=== PATIENT | male | born 1990 | race African-American/Black ===

== ENCOUNTER 2017-03-17 11:56 | Outpatient (CLI) | payer OTHER | END 2017-03-17 11:57 | disposition home or self-care (01) | DX: M25.561 Pain in right knee (principal); X58.XXXA Exposure to other specified factors, initial encounter; Y93.67 Activity, basketball ==

== ENCOUNTER 2018-12-13 18:18 | Emergency (ER) | payer SELFPAY ==
--- NOTE | 2018-12-13 20:42 | XRAY Report ---
Reason: injury shoulder playing basketball Procedure Date: 12/13/2018 Accession Number: [id number] / [id number] Procedure: XR - Shoulder 3 View LT CPT Code: FULL RESULT: EXAM: LEFT SHOULDER RADIOGRAPHY EXAM DATE: 12/13/2018 08:09 PM. CLINICAL HISTORY: Injury shoulder playing basketball. COMPARISON: None. TECHNIQUE: 3 views. FINDINGS: Bones: No fracture or focal bony lesion. Joints: No evidence of dislocation. Soft Tissues: No unexpected soft tissue findings. IMPRESSION: No evidence of fracture or dislocation. RADIA
--- NOTE | 2018-12-13 20:56 | ED Physician Documentation ---
PD HPI UPPER EXT INJURY - Stated complaint Stated Complaint: L SHOULDER INJ - Chief complaint Chief Complaint: Ext Problem - History obtained from History obtained from: Patient - History of Present Illness Location: Left, Shoulder Type of injury: Other (He was playing basketball a few days ago and had body to shoulder contact on his left/dominant shoulder and felt a pop there. He has severe pain especially with abduction. No other injuries.) Review of Systems Constitutional: denies: Fever, Chills Cardiac: reports: Reviewed and negative GI: denies: Abdominal Pain, Nausea, Vomiting : denies: Dysuria PD PAST MEDICAL HISTORY - Past Medical History Past Medical History: No - Past Surgical History Past Surgical History: Yes - Present Medications Home Medications: Ambulatory Orders Medication Instructions Recorded Confirmed Hydrocodone/Acetaminophen 1 - 2 each PO Q6H PRN #14 tablet 12/13/18 [Hydrocodon-Acetaminophen 5-325] - Allergies Allergies/Adverse Reactions: Allergies Allergy/AdvReac Type Severity Reaction Status Date / Time No Known Drug Allergies Allergy Verified 12/13/18 20:19 - Social History Does the pt smoke?: No Smoking Status: Never smoker Does the pt drink ETOH?: Yes - Immunizations Immunizations are current?: Yes - POLST Patient has POLST: No PD ED PE NORMAL - Vitals Vital signs reviewed: Yes - General General: Alert and oriented X 3, No acute distress - Neck Neck: Supple, no meningeal sign, No bony TTP - Extremities Extremities: Other (Focally tender over the left AC joint with minimal ability to abduct due to pain but neurovascular intact in the arm including normal deltoid sensation. No significant glenohumeral tenderness.) - Neuro Neuro: Alert and oriented X 3, Normal speech Results - Vitals Vitals: Vital Signs - 24 hr 12/13/18 19:00 Temperature 36.9 C Heart Rate 71 Respiratory 16 Rate Blood Pressure 136/76 H O2 Saturation 97 Oxygen O2 Source Room air - Rads (name of study) 3v L shoulder Radiology: EMP read contemporaneously (NAD) Departure - Departure Disposition: Home, Self Care Clinical Impression: Separation of left acromioclavicular joint, type 1 Qualifiers: Encounter type: initial encounter Qualified Code(s): S43.102A - Unspecified dislocation of left acromioclavicular joint, initial encounter Condition: Good Record reviewed to determine appropriate education?: Yes Instructions: ED Sprain AC Joint Follow-Up: [facility] [Provider Group] - Within 1 week Prescriptions: Hydrocodone/Acetaminophen [Hydrocodon-Acetaminophen 5-325] 1 - 2 each PO Q6H PRN #14 tablet PRN Reason: pain Comments: Your blood pressure was elevated today on check into the emergency department. This does not mean that you have hypertension, it is a common phenomenon to come to the emergency department and have elevated blood pressure. I recommend that you see your primary care physician within the week to have it rechecked when you are feeling better. Forms: Activity restrictions
[2018-12-13 21:09] VITALS: BP 127/85
== END 2018-12-13 21:29 | disposition home or self-care (01) ==
LOC: ED 18:18
DX: S43.102A Unspecified dislocation of left acromioclavicular joint, initial encounter (principal); W51.XXXA Accidental striking against or bumped into by another person, initial encounter; Y93.67 Activity, basketball; R03.0 Elevated blood-pressure reading, without diagnosis of hypertension
CPT/HCPCS: 99283